=== PATIENT | female | born 1975 ===

== ENCOUNTER 2018-03-14 01:15 | Emergency (ER) | payer SELFPAY ==
[2018-03-14 02:24] VITALS: BMI 25.4
[2018-03-14 02:30] VITALS: RESP 18
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
[2018-03-14 05:57] VITALS: BP 139/93; PULSE 66; O2SAT 98
[2018-03-14 06:01] VITALS: TEMP 98.6
--- NOTE | 2018-03-14 11:18 | RAD ---
Date of service: 03/14/2018 PROCEDURE: Left Knee Radiographs. HISTORY: Pain. COMPARISON: None. FINDINGS: BONES: Normal. No fracture. JOINTS: Normal. No osteoarthritis. JOINT EFFUSION: None. OTHER FINDINGS: None. IMPRESSION: Normal radiographs of the left knee.
--- NOTE | 2018-03-14 11:18 | RAD ---
Date of service: 03/14/2018 PROCEDURE: Left Ankle Radiographs. HISTORY: fall, pain COMPARISON: None FINDINGS: BONES: Normal. No fracture. JOINTS: Normal. No osteoarthritis. Ankle mortise maintained. Talar dome intact SOFT TISSUES: Normal. OTHER FINDINGS: None. IMPRESSION: Normal left ankle radiographs.
--- NOTE | 2018-03-14 11:44 | RAD ---
PROCEDURE: Left Hip X-ray Radiographs. HISTORY: fall, pain COMPARISON: None. FINDINGS: BONES: Normal. No fracture. JOINTS: Normal. SOFT TISSUES: Normal. OTHER FINDINGS: None. IMPRESSION: Normal left hip radiographs.
--- NOTE | 2018-03-14 11:44 | RAD ---
Date of service: 03/14/2018 PROCEDURE: Radiographs of the Lumbar Spine. HISTORY: fall COMPARISON: No prior. FINDINGS: BONES: Normal alignment. No listhesis. No fracture. DISC SPACES: Unremarkable. OTHER FINDINGS: None. IMPRESSION: Unremarkable radiographs of the lumbar spine.
--- NOTE | 2018-03-14 11:45 | RAD ---
Date of service: 03/14/2018 PROCEDURE: Cervical Spine Radiographs. HISTORY: Pain. COMPARISON: None. FINDINGS: BONES: Vertebral bodies maintained in height. Normal alignment maintained. Odontoid process suboptimally evaluated in the frontal projection. The atlantoaxial articulation is intact. DISC SPACES: Mild narrowing of C4-5 and C5-6 disc spaces consistent with degenerative disc disease. Remaining intervertebral disc spaces are maintained in height. SOFT TISSUES: Normal. No prevertebral soft tissue swelling. OTHER FINDINGS: None. IMPRESSION: Limited evaluation. No evidence of fracture or dislocation. Degenerative disc disease C4-5 and C5-6.
== END 2018-03-14 05:21 | disposition home or self-care (01) ==
LOC: H.ER 01:15
DX: S16.1XXA Strain of muscle, fascia and tendon at neck level, initial encounter (principal); M54.5 Low back pain; S89.92XA Unspecified injury of left lower leg, initial encounter; M25.552 Pain in left hip; S99.912A Unspecified injury of left ankle, initial encounter; W10.9XXA Fall (on) (from) unspecified stairs and steps, initial encounter
CPT/HCPCS: 72050; 72100; 73502; 73562; 73610; 96372; 99285; J1885